=== PATIENT | male | born 1975 | race Caucasian/White ===

== ENCOUNTER → 2024-01-10 12:02 | Outpatient (REF) | payer OTHER, SELFPAY | LOC: DHCBC/DCA 12:02 | PROVIDERS: ATTENDING PHYSICIAN Internal Medicine Cardiovascular Disease; FAMILY PHYSICIAN Internal Medicine | DX: R42 Dizziness and giddiness (principal); R53.83 Other fatigue; R94.31 Abnormal electrocardiogram [ECG] [EKG] | CPT/HCPCS: 78452; 93017; A9500 ==

== ENCOUNTER → 2024-01-13 11:13 | Outpatient (REF) | payer OTHER, SELFPAY | LOC: DHCBC HW 11:13 | PROVIDERS: ATTENDING PHYSICIAN Internal Medicine Cardiovascular Disease; FAMILY PHYSICIAN Internal Medicine | DX: R42 Dizziness and giddiness (principal); R53.83 Other fatigue; R94.31 Abnormal electrocardiogram [ECG] [EKG] | CPT/HCPCS: 93306 ==